=== PATIENT | male | born 1985 | race Caucasian/White ===

== ENCOUNTER 2017-01-02 11:17 | Emergency (ER) | payer OTHER | END 2017-01-02 12:47 | disposition home or self-care (01) | LOC: D.ER 11:17 | DX: S61.412A Laceration without foreign body of left hand, initial encounter (principal); W45.8XXA Other foreign body or object entering through skin, initial encounter; Y93.89 Activity, other specified; Y92.89 Other specified places as the place of occurrence of the external cause; S69.92XA Unspecified injury of left wrist, hand and finger(s), initial encounter; K21.9 Gastro-esophageal reflux disease without esophagitis ==

== ENCOUNTER 2018-12-16 15:00 | Emergency (ER) | payer OTHER ==
[~2018-12-16] VITALS: Ht 185.4 cm; Wt 99.1 kg
[2018-12-16 15:04] VITALS: Ht 185.4 cm; Wt 99.1 kg
[2018-12-16] MEDS ORDERED: LISINOPRIL40 MG PO (15:06)
[2018-12-16] MEDS ORDERED: HCTZ25 MG PO (15:06)
[2018-12-16] MEDS ORDERED: ZOCOR20 MG PO (15:06)
[2018-12-16] MEDS ORDERED: GLUCOSAMINE HC500 MG (15:07)
[2018-12-16] MEDS ORDERED: CO Q-10200 MG PO (15:07)
[2018-12-16] MEDS ORDERED: PROTONIX40 MG PO ×2 (15:07→16:58)
[2018-12-16 15:58] LABS: BASOPHILS 0.5 % (0-2); EOSINOPHILS 2.1 % (0-7); HEMATOCRIT 44.6 % (42.0-54.0); HEMOGLOBIN 15.2 g/dL (13.5-17.5); IMMATURE GRANULOCYTES 0.4 % (0-5); LYMPHOCYTES 27.3 % (15-50); MCH 27.2 pg (26.0-34.0); MCHC 34.1 g/dL (31.0-37.0); MCV 79.8 fL (80.0-100.0); MEAN PLATELET VOLUME 9.5 fL (7.4-10.4); MONOCYTES 5.7 % (2-11); PLATELET COUNT 276 10x3/uL (130-400); RBC 5.59 10x6/uL (4.20-6.10); RDW 13.5 % (11.5-14.5); WBC 9.9 10x3/uL (4.8-10.8)
[2018-12-16 16:08] LABS: APTT 28.9 SECONDS (22.8-39.4); INR 0.98 (0.85-1.17); PROTIME 12.5 SECONDS (11.6-15.0)
[2018-12-16 16:14] LABS: ALBUMIN 4.5 g/dL (3.4-5.0); ALKALINE PHOSPHATASE 86 U/L (46-116); ALT (SGPT) 36 U/L (10-68); BILIRUBIN - TOTAL 0.31 mg/dL (0.2-1.3); CALC OSMOLALITY 272 mosm/kg (275-300); CALCIUM 9.9 mg/dL (8.5-10.1); CARBON DIOXIDE 27.9 mmol/L (21.0-32.0); CHLORIDE - SERUM 96 mmol/L (98-107); CREATININE - SERUM 1.1 mg/dL (0.6-1.3); GLUCOSE 102 mg/dL (74-106); POTASSIUM - SERUM 3.8 mmol/L (3.5-5.1); PROTEIN - SERUM 8.7 g/dL (6.4-8.2); SODIUM 135 mmol/L (136-145); UREA NITROGEN 22 mg/dL (7-18); eGFR NON AFRICAN AMERICAN 82 mL/min (90-120)
[2018-12-16 16:23] LABS: CKMB 1.3 U/L (0.0-3.6); CREATINE KINASE 298 UL (21-232); MAGNESIUM - SERUM 2.2 mg/dL (1.8-2.4)
[2018-12-16 16:30] LABS: TROPONIN-I < 0.017 ng/mL (0.000-0.060)
[2018-12-16 17:39] VITALS: BP 137/93
== END 2018-12-16 17:40 | disposition home or self-care (01) ==
LOC: D.ER 15:00
PROVIDERS: Emergency Medicine
DX: R07.9 Chest pain, unspecified (principal); K21.9 Gastro-esophageal reflux disease without esophagitis